=== PATIENT | male | born 2000 | race Caucasian/White ===

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

== ENCOUNTER 2018-04-14 08:50 | Emergency (ER) | payer BC ==
[2018-04-14] MEDS ORDERED: SILVER SULFADIAZINE 25 GM 1 APPL TUBE TP ONE (09:09)
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
[2018-04-14 09:25] VITALS: BP 108/62
== END 2018-04-14 09:22 | disposition home or self-care (01) ==
LOC: ED 08:50
DX: T22.111A Burn of first degree of right forearm, initial encounter (principal); X15.0XXA Contact with hot stove (kitchen), initial encounter; Y93.G3 Activity, cooking and baking; Y92.9 Unspecified place or not applicable; Y99.0 Civilian activity done for income or pay
CPT/HCPCS: 99282; 99283

== ENCOUNTER 2018-06-26 15:00 | Outpatient (CLI) | payer BC ==
--- NOTE | 2018-06-26 16:40 | Diagnostic Imaging Report ---
LAMAR HERNANDEZ [facility] [address] [facility] [address] [place], [place]. [address] Report Submission Date: Jun 26, 2018 3:18:43 PM CDT Patient Study Name: RAISSA ABRAMS Date: Jun 26, 2018 3:00:04 PM CDT Modality Type: DX Gender: M Description: CHEST : 98 Institution: [facility] Physician: LAMAR HERNANDEZ PA AND LATERAL CHEST HISTORY: Hemoptysis COMPARISON: None PA and Lateral Chest dated June 26, 2018 demonstrates a normal cardiomediastinal silhouette. Pulmonary vascularity is normal. Lungs are clear. IMPRESSION: NO ACTIVE DISEASE. Electronically signed on Jun 26, 2018 3:18:43 PM CDT by: Shani HAM
== END 2018-06-26 15:02 ==
LOC: RAD 15:00
PROVIDERS: ATTEND Nurse Practitioner Family
DX: R04.2 Hemoptysis (principal)
CPT/HCPCS: 71046

== ENCOUNTER 2019-06-02 23:46 | Emergency (ER) | payer SELFPAY ==
[2019-06-03 00:01] VITALS: BP 112/72
--- NOTE | 2019-06-03 00:16 | ED Physician Documentation ---
General Adult - HISTORIAN Historian: patient - HPI Stated Complaint: Believes he needs his medication adjusted Chief Complaint: General Adult Additional Information: Patient is a 18-year-old male that presents to the ER with c/o depression. He denies any SI or HI. He denies any past hx of suicide attempt. He states that he is just having bad thoughts but cant really explain. He is wondering if we can change his medication. He states that he is suppose to start new job this morning. Discussed starting his new job to help occupy his mind- he states "I don't think I can"- explained that sitting at home is not a positive intervention. After a long discussion with patient- it just sounds like he does not want to go to work in the morning. Recommended that he call PCP in the morning for follow up appointment. Patient is in no acute distress- good eye contact- appropriate communication= just very obvious he is not wanting to go to work. He denies any hallucinations or delusions Onset: hours Timing: still present Severity: mild Modifying Factors: New Job - ROS CONST: no problems EYES/ENT: none CVS/RESP: none GI/: none MS/SKIN/LYMPH: none NEURO/PSYCH: denies: headache - PAST HX Past History: other (depression) Other History: none Surgeries/Procedures: none Immunizations: UTD Allergies/Adverse Reactions: Allergies Allergy/AdvReac Type Severity Reaction Status Date / Time No Known Drug Allergies Allergy Verified 06/03/19 00:00 Home Medications: Ambulatory Orders Medication Instructions Recorded Mirtazapine 15 mg PO HS 06/03/19 - SOCIAL HX Smoking History: greater than 1 pack/day Alcohol Use: none Drug Use: marijuana - FAMILY HX Family History: No - VITAL SIGNS Vital Signs: Vital Signs Temp Pulse Resp BP Pulse Ox 60 14 112/72 96 06/02/19 23:46 06/02/19 23:46 06/02/19 23:46 06/02/19 23:46 - REVIEWED ASSESSMENTS Nursing Assessment Reviewed: Yes Vitals Reviewed: Yes General Adult Physical Exam - PHYSICAL EXAM GENERAL APPEARANCE: no distress EENT: eye inspection normal, ENT inspection normal, no signs of dehydration, CHRISTIN NECK: normal inspection, supple RESPIRATORY: breath sounds normal CVS: heart sounds normal ABDOMEN: normal bowel sounds SKIN: warm/dry, normal color EXTREMITIES: non-tender, normal range of motion NEURO: oriented X3, CN's nml as tested, motor nml, sensation nml, mood/affect nml, cognition normal Discharge Clincal Impression: Encounter to obtain excuse from work, Medication management, Depression Referrals: Primary Doctor,Claudia [Primary Care Provider] - 2 Days Condition: Stable Disposition: 01 HOME, SELF-CARE Decision to Admit: NO Decision Time: 00:25
== END 2019-06-03 00:15 | disposition home or self-care (01) ==
LOC: ED 23:46
DX: Z02.79 Encounter for issue of other medical certificate (principal); Z51.81 Encounter for therapeutic drug level monitoring; F32.9 Major depressive disorder, single episode, unspecified
CPT/HCPCS: 99281; 99282